=== PATIENT | male | born 1970 | race Caucasian/White ===

== ENCOUNTER 2018-08-21 18:00 | Emergency (ER) | payer OTHER ==
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
[2018-08-21] MEDS ORDERED: fentaNYL 100 MCG/2 ML INJ ONE (18:34)
[2018-08-21] MEDS ORDERED: fentaNYL 100 MCG/2 ML INJ IVP ONE (18:37)
[2018-08-21] MEDS ORDERED: IOPAMIDOL (ISOVUE-300) 100 ML BTL ONE (19:33)
[2018-08-21] MEDS ORDERED: KETOROLAC 30 MG/1 ML SDV IVP ONE (20:45)
[2018-08-21] MEDS ORDERED: CYCLOBENZAPRINE 10 MG TAB PO ONE (20:45)
[2018-08-21] MEDS ORDERED: ACETAMINOPHEN 500 MG TAB PO ONE (20:45)
[2018-08-21] MEDS ORDERED: LIDOCAINE 4%/MENTHOL 1% PATCH TD ONE (20:46)
[2018-08-21] MEDS ORDERED: PATCH REMOVAL 1 EA PATCH TD SCH (21:00)
[2018-08-21 22:09] VITALS: BP 107/75
[2018-08-21] MEDS ORDERED: HYDROCOD/APAP 5/325 PREPACK#6 BTL TAKEHOME ONE ×2 (22:13→22:23)
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
== END 2018-08-21 22:35 | disposition home or self-care (01) ==
LOC: EDUNIT#
DX: S22.42XA Multiple fractures of ribs, left side, initial encounter for closed fracture (principal); S22.009A Unspecified fracture of unspecified thoracic vertebra, initial encounter for closed fracture; S09.90XA Unspecified injury of head, initial encounter; S19.9XXA Unspecified injury of neck, initial encounter; S49.92XA Unspecified injury of left shoulder and upper arm, initial encounter; Y92.410 Unspecified street and highway as the place of occurrence of the external cause; Y93.55 Activity, bike riding; Y99.9 Unspecified external cause status
CPT/HCPCS: 96374; J1885; J3010; Q9967